=== PATIENT | male | born 1985 | race Caucasian/White ===

== ENCOUNTER 2016-06-27 20:23 | Emergency (ER) | payer BC ==
--- NOTE | ~2016-06-27 | ER ---
PATIENT'S NAME: MANDO FIERRO [facility] AGE: 30 Y [address] ROOM: [place] [address] LOCATION: [facility] ADMIT DATE: 06/27/2016 ER/Outpatient Report DISCHARGE DATE: 06/27/2016 FAMILY PHYSICIAN: Anson Garcia MD ATTENDING PHYSICIAN: Andree Redd Time of Arrival: 2022 hours. Time of Evaluation: 2030 hours. IDENTIFICATION: A 30-year-old male. CHIEF COMPLAINT: Chest pain. HISTORY OF PRESENT ILLNESS: The patient is a 30-year-old male who was sitting on a couch, reached over and had a tightness in his chest. It is worse with movement and no other associated symptoms. No nausea, vomiting. No diaphoresis. No lightheadedness or dizziness. He has never had pain like this before. He denies any unusual activity or heavy lifting, but it is worse with movement. He has no diabetes, hypertension, or hyperlipidemia and no family history of premature coronary artery disease. ALLERGIES: AMOXICILLIN. CURRENT MEDICATIONS: Denies. MEDICAL PROBLEMS: Denies. PRIOR SURGERIES: Knee arthroscopy. SOCIAL HISTORY: The patient is . Lives here in [place]. He is a [employer]. Tobacco use, denies. Alcohol use, occasional on the weekends. He had approximately 5 beers yesterday. Drug use, denies. FAMILY HISTORY: No pertinent family history identified. REVIEW OF SYSTEMS: PATIENT'S NAME: MANDO FIERRO [facility] AGE: 30 Y [address] ROOM: [place] [address] LOCATION: [facility] ADMIT DATE: 06/27/2016 ER/Outpatient Report DISCHARGE DATE: 06/27/2016 FAMILY PHYSICIAN: Anson Garcia MD ATTENDING PHYSICIAN: Andree Redd All systems reviewed and negative other than what is noted in the HPI. PHYSICAL EXAMINATION: VITAL SIGNS: Height 6 feet 4 inches, weight 116.1 kg. Blood pressure 141/84, pulse 62, respirations 16, temperature 98.6, saturations 95% on room air. GENERAL: A 30-year-old male in no acute distress. HEENT: Head: Normocephalic, atraumatic. Eyes: Pupils equal and reactive to light and accommodation. Extraocular movements intact. TMs not visualized. Nose: Mucosa pink. No lesions. Mouth: No lesions. Pharynx benign. NECK: Supple. No lymphadenopathy. No nuchal rigidity. LUNGS: Clear to auscultation. Breath sounds are equal. No rhonchi, wheezes, or rales. HEART: Regular rate and rhythm. No murmur, rub, or gallop. ABDOMEN: Bowel sounds present. Soft, nondistended. No hepatosplenomegaly. No palpable masses. Nontender. CHEST: He does have chest wall tenderness which reproduces his pain. SKIN: [place], warm, and dry. No lesions or rashes noted. NEUROLOGIC: The patient alert and oriented x4. Cranial nerves II through XII grossly intact. Motor strength 5/5 throughout. Sensation is intact to light touch. No lower extremity edema. No calf tenderness. EMERGENCY DEPARTMENT COURSE: An IV was initiated. Labs were drawn. EKG was obtained. The patient was given 4 baby aspirins. Initial EKG at 2028, normal sinus rhythm at 66 beats per minute. No acute ST elevation or depression. No prior EKG available for comparison. Repeat EKG at 2228, normal sinus rhythm. Sinus bradycardia at 56 beats per minute. No acute ST elevation or depression, and no significant change when compared to earlier EKG. The patient was given 30 mg of IV Toradol and his pain completely relieved to zero. Chest x-ray, no acute process. Pending Radiology over-read. Sodium 141, potassium 4.2, chloride 105, CO2 of 28, BUN 22, creatinine 1.2. Blood sugar 94. Liver enzymes normal. Magnesium 2.2. Alcohol level less than 0.010. CPK 211, CK-MB 1.9. Troponin I less than 0.040. Two-hour cardiac enzymes; CPK 178, CK-MB 1.7. Troponin I less than 0.040. Hemoglobin 15, hematocrit 43.6, platelets 245, white count 6.4 with a normal differential. INR 0.98. CT PE protocol, no PE, no definite cause for symptoms identified. IMPRESSION: Chest wall pain. PLAN: Tylenol or ibuprofen. No heavy lifting. Ice or heat. Follow up with Dr. Garcia next week. Follow up sooner if any problems or concerns. The patient and his understand and agree, and all questions have been answered. PATIENT'S NAME: MANDO FIERRO [facility] AGE: 30 Y [address] ROOM: [place] [address] LOCATION: [facility] ADMIT DATE: 06/27/2016 ER/Outpatient Report DISCHARGE DATE: 06/27/2016 FAMILY PHYSICIAN: Anson Garcia MD ATTENDING PHYSICIAN: Andree Redd ANDREE REDD MD CAR/modl /[id number] d: 06/28/16 0452 t: 07/05/16 1839, OUTPATIENT REPORT
[2016-06-27 20:43] LABS: BASOPHIL # 0.1 K/uL (0.0-0.2); BASOPHIL % 1.4 %; EOSINOPHIL # 0.3 K/uL (0.0-0.5); EOSINOPHIL % 4.9 %; HEMATOCRIT 43.6 % (37.0-53.0); IMMATURE GRANULOCYTE % 0.2 %; LYMPHOCYTE # 2.7 K/uL (0.8-4.0); LYMPHOCYTE % 41.5 %; MCH 29.5 pg (27.0-34.0); MCHC 34.4 gm/dL (32.0-36.5); MCV 85.7 fl (83.0-98.0); MONOCYTE # 0.5 K/uL (0.0-1.0); MPV 8.8 fl (9.4-12.4); NEUTROPHIL # (ANC) 2.8 K/uL (1.4-9.0); NRBC % 0 /100WBC (0-0.00); PLATELET COUNT 245 K/uL (150-450); RBC 5.09 M/uL (4.00-6.00); RDW-CV 11.8 % (11.9-14.6); WBC 6.4 K/uL (4.0-11.0)
[2016-06-27 20:53] LABS: INR - (THERAPEUTIC) 0.98 (0.92-1.07); PROTIME 10.3 SECONDS (9.8-11.4); PTT 27 SECONDS (25-32)
[2016-06-27 21:02] LABS: ALBUMIN 4.2 gm/dL (3.5-5.0); ALK PHOS 92 IU/L (33-138); ALT 26 IU/L (12-78); ANION GAP 12.2 (10.0-19.0); AST 20 IU/L (10-40); BLOOD UREA NITROGEN 22 mg/dL (6-24); CALCIUM 8.5 mg/dL (8.5-10.5); CHLORIDE 105 mMol/L (96-110); CO2 28 mMol/L (22-32); CPK 211 IU/L (35-332); CREATININE 1.2 mg/dL (0.6-1.3); ESTIMATED GFR (MDRD EQUATION) > 60; MAGNESIUM 2.2 mg/dL (1.8-2.6); POTASSIUM 4.2 mMol/L (3.7-5.1); SODIUM 141 mMol/L (135-145); TOTAL BILIRUBIN 0.4 mg/dL (0.0-1.5); TOTAL PROTEIN 7.2 g/dL (6.0-8.4)
[2016-06-27 23:03] LABS: CPK 178 IU/L (35-332)
== END 2016-06-27 23:18 | disposition disaster alternative care site (69) ==
LOC: GMED 20:23
PROVIDERS: Family Medicine
DX: R07.89 Other chest pain (principal); Z88.1 Allergy status to other antibiotic agents
CPT/HCPCS: G0480; J1885; Q9967